=== PATIENT | female | born 1950 | race Caucasian/White ===

== ENCOUNTER 2018-11-29 06:14 | Emergency (ER) | payer OTHER ==
[2018-11-29 06:47] LABS: PLATELET COUNT 214 10^3/uL (150-400)
--- NOTE | 2018-11-29 06:51 | EDPHY ---
H & P Stated Complaint: Epigastric/upper abd pain Time Seen by Provider: 11/29/18 06:50 HPI/ROS: CHIEF COMPLAINT: Epigastric pain HISTORY OF PRESENT ILLNESS: The patient presents the ED with acute epigastric pain that began at 4:00 a.m. This morning. The patient denies associated nausea , vomiting, diarrhea or symptoms of acid reflux. The patient denies any chest pain or shortness of breath. She has no complaints of fever, cough or congestion. The patient has no prior history of the symptoms. The patient denies prior history of abdominal surgery. Her symptoms are moderate in nature and worsened with palpation. REVIEW OF SYSTEMS: A comprehensive 10 point review of systems is otherwise negative aside from elements mentioned in the history of present illness. Source: Patient Exam Limitations: No limitations - Personal History Current Tetanus Diphtheria and Acellular Pertussis (TDAP): Yes Tetanus Vaccine Date: Fall 2016 - Medical/Surgical History Hx Asthma: No Hx Chronic Respiratory Disease: No Hx Diabetes: No Hx Cardiac Disease: No Hx Renal Disease: No Hx Cirrhosis: No Hx Alcoholism: No Hx HIV/AIDS: No Hx Splenectomy or Spleen Trauma: No Other PMH: HTN, nerve pain - Social History Smoking Status: Never smoked - Physical Exam Exam: General Appearance: Alert, no distress Eyes: Pupils equal and round no pallor or injection ENT, Mouth: Mucous membranes moist Respiratory: There are no retractions, lungs are clear to auscultation Cardiovascular: Regular rate and rhythm Gastrointestinal: Epigastric tenderness to palpation, no obvious masses, normal bowel sounds Neurological: 5/5 strength all 4 extremities Skin: Warm and dry, no rashes Musculoskeletal: Neck is supple nontender Extremities: symmetrical, full range of motion Constitutional: Initial Vital Signs Temperature (C) 36.4 C 11/29/18 06:15 Heart Rate 61 11/29/18 06:15 Respiratory Rate 17 11/29/18 06:15 Blood Pressure 173/80 H 11/29/18 06:15 O2 Sat (%) 95 11/29/18 06:15 O2 Delivery Mode Room Air Allergies/Adverse Reactions: No Known Allergies Allergy (Unverified 11/29/18 06:20) Home Medications: Medication Instructions Recorded Gabapentin 11/29/18 Lisinopril-Hctz 10-12.5 mg Tab 11/29/18 Medical Decision Making - Diagnostics EKG Interpretation: EKG: Complete interpretation has been separately recorded in the [facility] archive. Summary impression: Sinus rhythm, rate 54 Imaging Results: Imaging Impressions Abdomen CT 11/29/18 07:02 Impression: 1. No acute findings in the abdomen or pelvis. 2. Constipation. 3. Diverticulosis without evidence of diverticulitis. 4. Degenerative change in the lumbar spine. 5. Additional findings as above. Findings discussed with Harsha Mayers 11/29/2018 at 8:36. Abdomen Ultrasound 11/29/18 08:46 Impression: 1. Moderate focal thickening at the gallbladder fundus that could represent decompressed phrygian cap with internal sludge versus focal gallbladder wall thickening or adenomyomatosis. Consider follow-up right upper quadrant ultrasound in 6-12 months to evaluate for any interval change. 2. Small 5 mm gallbladder polyp. Findings discussed with Harsha Mayers M.D. at 9:51 hour, 11/29/2018. ED Course/Re-evaluation: The patient presents to the ED with complaints of acute epigastric pain. The patient's vital signs are stable. Her EKG demonstrates no evidence of an arrhythmia. The patient was taken for CT scan of the abdomen pelvis which demonstrates no obvious intra-abdominal pathology. The patient was noted to have an indeterminately elevated lipase. The remainder of her liver function test were normal. Right upper quadrant ultrasound demonstrates an abnormal morphology of the gallbladder however no evidence of cholelithiasis or cholecystitis. The patient was given a GI cocktail in the emergency department. The patient had 3 serial examinations over a 4 hr period. I re-evaluated the patient at 10:20 a.m. In the morning and her tenderness has resolved. She had a significant response to the GI cocktail. She has been informed of the abnormality of her gallbladder morphology as well as a slightly elevated lipase. She is comfortable discharging to home at this point time with plans to begin ranitidine and Maalox. The patient will follow up with her primary care provider. She is discharged home with customary aftercare instructions and return precautions. Differential Diagnosis: Differential diagnosis considered includes cholecystitis, pancreatitis, peptic ulcer disease, gastritis, esophageal spasm, pericarditis, acute coronary syndrome - Data Points Laboratory Results: Laboratory Results 11/29/18 06:30 11/29/18 06:30 11/29/18 11/29/18 11/29/18 06:39 06:30 06:30 WBC 4.15 10^3/uL 10^3/uL (3.80-9.50) RBC 4.48 10^6/uL 10^6/uL (4.18-5.33) Hgb 14.8 g/dL g/dL (12.6-16.3) Hct 43.3 % % (38.0-47.0) MCV 96.7 fL fL (81.5-99.8) MCH 33.0 pg pg (27.9-34.1) MCHC 34.2 g/dL g/dL (32.4-36.7) RDW 13.2 % % (11.5-15.2) Plt Count 214 10^3/uL 10^3/uL (150-400) MPV 11.0 fL fL (8.7-11.7) Neut % (Auto) 46.6 % % (39.3-74.2) Lymph % (Auto) 36.6 % % (15.0-45.0) [place] % (Auto) 11.6 % % (4.5-13.0) Eos % (Auto) 4.3 % % (0.6-7.6) Baso % (Auto) 0.7 % % (0.3-1.7) Nucleat RBC Rel Count 0.0 % % (0.0-0.2) Absolute Neuts (auto) 1.93 10^3/uL 10^3/uL (1.70-6.50) Absolute Lymphs (auto) 1.52 10^3/uL 10^3/uL (1.00-3.00) Absolute Monos (auto) 0.48 10^3/uL 10^3/uL (0.30-0.80) Absolute Eos (auto) 0.18 10^3/uL 10^3/uL (0.03-0.40) Absolute Basos (auto) 0.03 10^3/uL 10^3/uL (0.02-0.10) Absolute Nucleated RBC 0.00 10^3/uL 10^3/uL (0-0.01) Immature Gran % 0.2 % % (0.0-1.1) Immature Gran # 0.01 10^3/uL 10^3/uL (0.00-0.10) Sodium 140 mEq/L mEq/L (135-145) Potassium 4.1 mEq/L mEq/L (3.5-5.2) Chloride 111 mEq/L H mEq/L (97-110) Carbon Dioxide 23 mEq/l mEq/l (22-31) Anion Gap 6 mEq/L mEq/L (6-14) BUN 33 mg/dL H mg/dL (7-23) Creatinine 0.7 mg/dL mg/dL (0.6-1.0) Estimated GFR > 60 Glucose 100 mg/dL mg/dL (70-100) Calcium 9.2 mg/dL mg/dL (8.5-10.4) Total Bilirubin 0.5 mg/dL mg/dL (0.1-1.4) Conjugated Bilirubin 0.3 mg/dL mg/dL (0.0-0.5) Unconjugated Bilirubin 0.2 mg/dL mg/dL (0.0-1.1) AST 22 IU/L IU/L (14-46) ALT 27 IU/L IU/L (9-52) Alkaline Phosphatase 71 IU/L IU/L (38-126) POC Troponin I 0.00 ng/mL ng/mL (0.00-0.08) Total Protein 5.8 g/dL L g/dL (6.3-8.2) Albumin 3.5 g/dL g/dL (3.5-5.0) Lipase 813 IU/L H IU/L (23-300) Medications Given: Discontinued Medications Al Hydroxide/Mg Hydroxide (Maalox Susp) 30 ml PO ONCE ONE Stop: 11/29/18 08:59 Last Admin: 11/29/18 09:06 Dose: 30 ml Hyoscyamine Sulfate (Levsin, Hyomax-Sl) 0.25 mg PO ONCE ONE Stop: 11/29/18 08:59 Last Admin: 11/29/18 09:06 Dose: 0.25 mg Lidocaine (Lidocaine 2% Viscous) 15 ml PO ONCE ONE Stop: 11/29/18 08:59 Last Admin: 11/29/18 09:06 Dose: 15 ml Point of Care Test Results: Chemistry 11/29/18 06:39 POC Troponin I 0.00 ng/mL ng/mL (0.00-0.08) Departure - Departure Disposition: Home, Routine, Self-Care Clinical Impression: Abdominal pain Qualifiers: Abdominal location: epigastric Qualified Code(s): R10.13 - Epigastric pain Condition: Good Instructions: Abdominal Pain (ED) Additional Instructions: 1. Please schedule a follow-up appointment with your primary care provider. Please have your lipase rechecked in the next week. 2. Please have your primary care provider schedule a follow-up gallbladder ultrasound in 6 months. 3. Please begin Zantac 150 mg twice a day. This is available [email or web address]. 4. Please use Maalox as needed for discomfort. 5. Please return to the ED immediately for markedly worsening symptoms, vomiting , fever, difficulty breathing or other concerns. Referrals: Jes Ron DO [Primary Care Provider] - As per Instructions
[2018-11-29] MEDS ORDERED: IOPAMIDOL (ISOVUE-300) 100 ML BTL ONE (07:04)
--- NOTE | 2018-11-29 08:49 | CPEKG ---
Test Reason : OPEN Blood Pressure : / mmHG Vent. Rate : 054 BPM Atrial Rate : 055 BPM P-R Int : 178 ms QRS Dur : 096 ms QT Int : 427 ms P-R-T Axes : 024 -18 000 degrees QTc Int : 405 ms Sinus rhythm Borderline left axis deviation Confirmed by Harsha Mayers ([id number]) on 11/29/2018 8:49:25 AM Referred By: Harsha Mayers Confirmed By:Harsha Mayers
[2018-11-29] MEDS ORDERED: HYOSCYAMINE SULFATE 0.125 MG TAB PO ONE (08:58)
[2018-11-29] MEDS ORDERED: MAG HYDROX/AL HYDROX/SIMETH 30 ML UDCUP PO ONE (08:58)
[2018-11-29] MEDS ORDERED: LIDOCAINE 2% VISCOUS 15 ML UDCUP PO ONE (08:58)
[2018-11-29 09:35] VITALS: BP 163/95
== END 2018-11-29 10:38 | disposition home or self-care (01) ==
DX: R10.13 Epigastric pain (principal)
CPT/HCPCS: 74177; 76705; 93005; 99285; Q9967; 84484-ER

== ENCOUNTER → 2019-01-07 | Outpatient (CLI) | payer OTHER | LOC: BMCIMAGING 08:18 | PROVIDERS: ATTEND Family Medicine | DX: Z12.31 Encounter for screening mammogram for malignant neoplasm of breast (principal) ==